=== PATIENT | male | born 1965 | race Caucasian/White ===

== ENCOUNTER 2017-03-27 09:52 | Emergency (ER) | payer OTHER ==
[~2017-03-27] VITALS: Ht 175.3 cm; Wt 147.4 kg
[~2017-03-27 09:52] MED LIST: ALBUTEROL17 GM IH; ALLOPURINOL100 MG PO; ANAPROX DS550 M1 PO; ASPIRIN81 M1 PO; CATAPRES0.2 MG PO; CLONIDINE HCL0.2 MG PO; COD LIVER OI PO; COZAAR100 MG PO; FISH OIL500 MG PO; GLUCOPHAGE500 M1 PO; GLUCOPHAGE500 MG PO; IRON160 M1 PO; LOSARTAN POTAS100 MG PO; METFORMIN HCL500 MG PO; MULTIVITAMIN1 EAC2 PO; NAPROSYN500 MG PO; NORCO 7.5/321 TABLET PO; OMEPRAZOLE20 M2 PO; PERCOCET 5/31 TABLET PO; PHENTERMINE H37.5 MG PO; PRILOSEC20 MG PO; THERAGRAN1 TABLET PO; TRAMADOL HCL50 MG PO; VICODIN 5-5001 EACH PO; VITAMIN D250000 UNIT PO; VITAMIN D400 UNI2 PO; VITAMIN D5000 INTUN PO; VITAMIN D50000 UNI1 PO; ZYLOPRIM100 MG PO
[2017-03-27 10:25] LABS: HEMATOCRIT 47.8 % (38.0-50.0); MCH 27.5 PG (29.0-34.0); MCHC 33.5 G/DL (30.0-36.0); MCV 82.1 FL (86-99); PLATELET COUNT 250 K/uL (156-360); RBC DIS.WIDTH-CV 13.1 % (11.8-14.6); RBC DIS.WIDTH-SD 38.9 % (39-53); RED BLOOD COUNT 5.82 M/uL (4.00-5.50); WHITE BLOOD COUNT 7.5 K/uL (4.1-10.2)
[2017-03-27 10:35] LABS: ALBUMIN 3.7 g/dL (3.2-4.8); CHLORIDE 111 mEq/L (99-109); POTASSIUM 3.5 mEq/L (3.7-5.4); SODIUM 137 mEq/L (136-147)
[2017-03-27 10:37] LABS: GLUCOSE 139 mg/dL (70-99); TOTAL PROTEIN 7.4 g/dL (6.4-8.3)
[2017-03-27 10:39] LABS: TOTAL BILIRUBIN 0.8 mg/dL (0.0-1.0)
[2017-03-27 10:41] LABS: ALKALINE PHOSPHATASE 78 IU/L (3-129); CREATININE 0.8 mg/dL (0.6-1.3); GFR ESTIMATE (CALCULATED) > 59 mL/min/ (58.99-99999)
[2017-03-27 10:42] LABS: UREA NITROGEN (BUN) 12 mg/dL (9-23)
[2017-03-27 10:43] LABS: AST (GOT) 28 IU/L (2-34)
[2017-03-27 10:44] LABS: ALT (GPT) 32 IU/L (3-49)
[2017-03-27 13:26] LABS: APPEARANCE CLEAR ((CLEAR)); BILIRUBIN NEGATIVE; BLOOD SMALL; GLUCOSE (STRIP) 50; KETONES 20; LEUKOCYTES NEGATIVE; NITRITE NEGATIVE; PROTEIN (STRIP) 30; UROBILINOGEN 0.2 MG/DL (0.2-1.0)
[2017-03-27 13:28] LABS: COLOR DK YELLOW ((YELLOW))
[2017-03-27 13:31] LABS: BACTERIA NONE SEEN /HPF; EPITHELIAL CELLS RARE /HPF; MUCUS TRACE /LPF; RED BLOOD CELLS 0-5 /HPF (0-5); UCUL ADDED? NO; WHITE BLOOD CELLS 0-5 /HPF (0-5)
[2017-03-27] MEDS ORDERED: ZOFRAN ODT4 MG PO (16:14)
[2017-03-27 16:27] VITALS: BP 169/98
== END 2017-03-27 16:34 | disposition home or self-care (01) ==
LOC: EME 09:52
PROVIDERS: Physician Assistant Medical
DX: R11.2 Nausea with vomiting, unspecified (principal); R19.7 Diarrhea, unspecified; N20.0 Calculus of kidney; K57.30 Diverticulosis of large intestine without perforation or abscess without bleeding; K21.9 Gastro-esophageal reflux disease without esophagitis; I10 Essential (primary) hypertension; E11.9 Type 2 diabetes mellitus without complications; Z96.641 Presence of right artificial hip joint; Z79.84 Long term (current) use of oral hypoglycemic drugs; Z79.82 Long term (current) use of aspirin
CPT/HCPCS: 74177; 80053; 81003; 85027; 87177; 87493; 87506; 99281; 99285; J2405; J7030